=== PATIENT | male | born 1960 | race Caucasian/White ===

== ENCOUNTER 2016-12-18 08:21 | Emergency (ER) | payer OTHER ==
[2016-12-18 08:27] VITALS: BP 156/85
--- NOTE | 2016-12-18 09:02 | ED Physician Documentation ---
PD HPI Fall - Stated complaint Stated Complaint: GLF/L SIDE PX - Chief complaint Chief Complaint: General - History obtained from History obtained from: Patient - History of Present Illness Mechanism of injury: Tripped Fall distance: Standing position Where injury occurred: Home Timing - onset: Last night (fell to left side but tried to block fall with hands and hurt right wrist.) Injury(ies) location: Chest, Right Upper Extremity. No: Head, Neck, Abdomen, Back Associated symptoms: No: LOC, AMS, Paresthesias, Dyspnea, Nausea / vomiting Similar symptoms before: Has not had sx before Recently seen: Not recently seen Review of Systems Constitutional: denies: Fever, Chills Nose: denies: Rhinorrhea / runny nose, Congestion Throat: denies: Sore throat Cardiac: reports: Chest pain / pressure Respiratory: denies: Dyspnea, Cough GI: denies: Abdominal Pain, Nausea, Vomiting Neurologic: denies: Focal weakness, Numbness, Altered mental status, Headache, Head injury PD PAST MEDICAL HISTORY - Past Medical History Past Medical History: Yes Cardiovascular: Hypertension, High cholesterol Psych: Anxiety - Past Surgical History Past Surgical History: Yes General: Appendectomy - Present Medications Home Medications: Ambulatory Orders Medication Instructions Recorded Confirmed HYDROcod/ACETAM 5/325 [[place] 5/325] 1 tab PO Q6H PRN #20 tablet 12/18/16 PARoxetine [Paxil] 20 mg PO DAILY 12/18/16 12/18/16 Simvastatin 20 mg PO DAILY 12/18/16 12/18/16 raNITIdine [Zantac] 150 mg PO DAILY 12/18/16 12/18/16 - Allergies Allergies/Adverse Reactions: Allergies Allergy/AdvReac Type Severity Reaction Status Date / Time No Known Drug Allergies Allergy Verified 12/18/16 08:26 - Social History Does the pt smoke?: No Smoking Status: Never smoker Does the pt drink ETOH?: No Does the pt have substance abuse?: No PD ED PE NORMAL - Vitals Vital signs reviewed: Yes - General General: Alert and oriented X 3, Well developed/nourished - HEENT HEENT: Atraumatic - Neck Neck: Supple, no meningeal sign, No bony TTP, No adenopathy - Cardiac Cardiac: RRR, No murmur - Respiratory Respiratory: Clear bilaterally, Other (left lateral chestwall with tenderness without deformity. No bruising noted. ) - Abdomen Abdomen: Soft, Non tender - Back Back: No spinal TTP - Derm Derm: Normal color, Warm and dry - Extremities Extremities: Other (right wrist with tenderness dorsally without swelling. Some tender radial side. ROM pretty good. ) - Neuro Neuro: Alert and oriented X 3, No motor deficit, No sensory deficit, Normal speech Results - Vitals Vitals: Oxygen O2 Source Room air - Rads (name of study) chest/ribs Radiology: Prelim report reviewed (no acute process seen) right wrist Radiology: Prelim report reviewed, EMP read contemporaneously (no fractures) PD MEDICAL DECISION MAKING - ED course Complexity details: reviewed results, considered differential, d/w patient Departure - Departure Disposition: 01 Home, Self Care Clinical Impression: Fall from slip, trip, or stumble Qualifiers: Encounter type: initial encounter Qualified Code(s): W01.0XXA - Fall on same level from slipping, tripping and stumbling without subsequent striking against object, initial encounter Right wrist sprain Qualifiers: Encounter type: initial encounter Qualified Code(s): S63.501A - Unspecified sprain of right wrist, initial encounter Contusion of left chest wall Qualifiers: Encounter type: initial encounter Qualified Code(s): S20.212A - Contusion of left front wall of thorax, initial encounter Condition: Stable Record reviewed to determine appropriate education?: Yes Instructions: ED Contusion Chest Wall, ED Sprain Wrist Prescriptions: HYDROcod/ACETAM 5/325 [[place] 5/325] 1 tab PO Q6H PRN #20 tablet PRN Reason: Pain Comments: The x-rays did not show any obvious fractures. I was with the radiologist reading as well. However we do know that can be a small percentage of hairline cracks of the ribs that are missed with this. This would be symptomatic treatment would take longer to heal than just bruising of the chest. Activity as able. Use ibuprofen 3 times a day for the next 7-10 days with food. Add Tylenol or hydrocodone if needed for pain. Activity as able. The wrist and chest wall should improve over the next week or so. However might even take a full 2-3 weeks to fully heal up if there was an occult fracture of the rib. Discharge Date/Time: 12/18/16 10:15
--- NOTE | 2016-12-18 09:08 | XRAY Preliminary Report ---
Exam: XR Ribs w/PA Chest LT IMPRESSION: Normal chest and rib radiography. [facility] SITE ID: [id number]
--- NOTE | 2016-12-18 09:09 | XRAY Preliminary Report ---
Exam: XR Wrist 4 View RT IMPRESSION: Normal wrist radiography. [facility] SITE ID: [id number]
--- NOTE | 2016-12-18 09:10 | XRAY Report ---
EXAM: LEFT RIB RADIOGRAPHY AND PA CHEST EXAM DATE: 12/18/2016 09:00 AM. CLINICAL HISTORY: Fall with rib pain on lower left. COMPARISON: None. TECHNIQUE: 1 view of the chest and 2 views of the ribs. FINDINGS: Bones: Normal. No definite fracture or bone lesion. Lungs: No focal opacities. No pneumothorax. No pleural effusions. Mediastinum: Heart and mediastinal contours are unremarkable. Other: None. IMPRESSION: Normal chest and rib radiography. [facility] Referring Provider Line: [phone] SITE ID: [id number]
--- NOTE | 2016-12-18 09:11 | XRAY Report ---
EXAM: RIGHT WRIST RADIOGRAPHY EXAM DATE: 12/18/2016 08:58 AM. CLINICAL HISTORY: Fall, pain in right wrist. COMPARISON: None. TECHNIQUE: 4 views. FINDINGS: Bones: Normal. No fractures or bone lesions. Joints: Normal. No subluxations. Soft Tissues: Normal. No soft tissue swelling. IMPRESSION: Normal wrist radiography. [facility] Referring Provider Line: [phone] SITE ID: [id number]
[2016-12-18] MEDS ORDERED: IBUPROFEN 600 MG TABLET PO STA (09:52)
[2016-12-18] MEDS ORDERED: oxyCOD/ACETAMIN 5 MG/325 MG TABLET PO STA (09:52)
[2016-12-18] MEDS ORDERED: IBUPROFEN 600 MG TABLET PO ONE (10:12)
[2016-12-18] MEDS ORDERED: oxyCOD/ACETAMIN 5 MG/325 MG TABLET PO ONE (10:12)
== END 2016-12-18 10:15 | disposition home or self-care (01) ==
LOC: ED 08:21
DX: S63.501A Unspecified sprain of right wrist, initial encounter (principal); S20.212A Contusion of left front wall of thorax, initial encounter; W01.0XXA Fall on same level from slipping, tripping and stumbling without subsequent striking against object, initial encounter; Y92.009 Unspecified place in unspecified non-institutional (private) residence as the place of occurrence of the external cause; I10 Essential (primary) hypertension
CPT/HCPCS: 71101; 73110; 99283; 99284; A9270

== ENCOUNTER 2018-01-30 16:50 | Outpatient (CLI) | payer OTHER | END 2018-01-30 16:51 | disposition EMS.NT | LOC: EMS 16:50 | PROVIDERS: ATTEND Surgery | DX: M25.512 Pain in left shoulder (principal); V49.40XA Driver injured in collision with unspecified motor vehicles in traffic accident, initial encounter; Y92.414 Local residential or business street as the place of occurrence of the external cause ==

== ENCOUNTER 2018-01-30 17:43 | Emergency (ER) | payer OTHER ==
[2018-01-30 17:51] VITALS: BP 138/67
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
[2018-01-30] MEDS ORDERED: IOPAMIDOL-300 100 ML VIAL ONE (19:11)
[2018-01-30 19:25] LABS: BASOPHILS # (AUTO) 0.1 10^3/uL (0.0-0.1); BASOPHILS % (AUTO) 0.7 %; EOSINOPHILS # (AUTO) 0.1 10^3/uL (0.0-0.7); EOSINOPHILS % (AUTO) 1.2 %; HGB - HEMOGLOBIN 13.9 g/dL (14.0-18.0); LYMPHOCYTES # (AUTO) 2.2 10^3/uL (1.5-3.5); LYMPHOCYTES % (AUTO) 27.4 %; MEAN CORPUSCULAR HEMOGLOBIN 30.5 pg (27.0-31.0); MEAN CORPUSCULAR HGB CONC 34.3 g/dL (32.0-36.0); MEAN CORPUSCULAR VOLUME 88.8 fL (80.0-94.0); MEAN PLATELET VOLUME 9.4 fL (7.4-11.4); MONOCYTES # (AUTO) 0.5 10^3/uL (0.0-1.0); NEUTROPHILS # (AUTO) 5.3 10^3/uL (1.5-6.6); NEUTROPHILS % (AUTO) 64.7 %; PLT - PLATELET COUNT 157 10^3/uL (130-450); RED BLOOD COUNT 4.55 10^6/uL (4.70-6.10); RED CELL DISTRIBUTION WIDTH 13.2 % (12.0-15.0); WHITE BLOOD COUNT 8.2 x10^3/uL (4.8-10.8)
[2018-01-30 19:38] LABS: ALBUMIN 4.1 g/dL (3.2-5.5); ALBUMIN/GLOBULIN RATIO 1.4 (1.0-2.2); BILIRUBIN,TOTAL 1.6 mg/dL (0.2-1.0); CALCIUM 8.8 mg/dL (8.5-10.3); CREATININE 0.9 mg/dL (0.6-1.2); TOTAL PROTEIN 7.1 g/dL (6.7-8.2)
[2018-01-30] MEDS ORDERED: IOPAMIDOL-300 100 ML VIAL IVP ONE (19:45)
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
== END 2018-01-30 21:30 | disposition home or self-care (01) ==
LOC: ED 17:43
DX: S20.212A Contusion of left front wall of thorax, initial encounter (principal); S30.1XXA Contusion of abdominal wall, initial encounter; V53.5XXA Driver of pick-up truck or van injured in collision with car, pick-up truck or van in traffic accident, initial encounter; I10 Essential (primary) hypertension; E78.00 Pure hypercholesterolemia, unspecified; R10.12 Left upper quadrant pain; M54.2 Cervicalgia; M25.512 Pain in left shoulder; M54.9 Dorsalgia, unspecified; M12.9 Arthropathy, unspecified
CPT/HCPCS: 36415; 71260; 72125; 73030; 73564; 74177; 80053; 83690; 85025; 99283; Q9967

== ENCOUNTER 2019-02-17 17:40 | Emergency (ER) | payer OTHER ==
[2019-02-17 17:51] VITALS: BP 144/69
[2019-02-17] MEDS ORDERED: CLINDAMYCIN 150 MG CAPSULE PO STA (18:19)
[2019-02-17] MEDS ORDERED: IBUPROFEN 800 MG TABLET PO STA (18:19)
[2019-02-17] MEDS ORDERED: oxyCODONE 5 MG TABLET PO STA (18:19)
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
== END 2019-02-17 18:33 | disposition home or self-care (01) ==
LOC: ED 17:40
DX: K04.7 Periapical abscess without sinus (principal); I10 Essential (primary) hypertension
CPT/HCPCS: 99283; A9270

== ENCOUNTER 2019-06-24 10:06 | Emergency (ER) | payer OTHER ==
[2019-06-24 10:39] LABS: BASOPHILS % (AUTO) 0.6 %; EOSINOPHILS # (AUTO) 0.1 10^3/uL (0.0-0.7); EOSINOPHILS % (AUTO) 0.9 %; HGB - HEMOGLOBIN 14.1 g/dL (14.0-18.0); LYMPHOCYTES # (AUTO) 2.2 10^3/uL (1.5-3.5); LYMPHOCYTES % (AUTO) 31.2 %; MEAN CORPUSCULAR HEMOGLOBIN 31.3 pg (27.0-31.0); MEAN CORPUSCULAR HGB CONC 34.6 g/dL (32.0-36.0); MEAN CORPUSCULAR VOLUME 90.7 fL (80.0-94.0); MONOCYTES # (AUTO) 0.4 10^3/uL (0.0-1.0); MONOCYTES % (AUTO) 5.8 %; NEUTROPHILS # (AUTO) 4.2 10^3/uL (1.5-6.6); NEUTROPHILS % (AUTO) 61.2 %; PLT - PLATELET COUNT 159 10^3/uL (130-450); RED CELL DISTRIBUTION WIDTH 12.8 % (12.0-15.0); WHITE BLOOD COUNT 6.9 x10^3/uL (4.8-10.8)
[2019-06-24 10:56] LABS: ALBUMIN 4.1 g/dL (3.2-5.5); ALBUMIN/GLOBULIN RATIO 1.4 (1.0-2.2); BILIRUBIN,TOTAL 1.7 mg/dL (0.2-1.0); CREATININE 0.8 mg/dL (0.6-1.2)
[2019-06-24 12:05] VITALS: BP 133/69
--- NOTE | 2019-06-24 12:34 | ED Physician Documentation ---
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 This lasted for about 3 to 4 seconds. Did not have actual syncope. Did not fall to the ground. Did not strike his head. The symptoms quickly passed and he feels normal now. No numbness or tingling other than his bilateral fingertips for a few seconds. No chest pain. No palpitations. No headache. No trauma. He has lost about 60 pounds over the past year, has not had his blood pressure meds adjusted since this weight loss occurred. Currently feels normal. He states he ate and drink normally this morning. Review of Systems Ten Systems: 10 systems reviewed and negative Constitutional: denies: Fever, Chills Ears: denies: Ear pain Nose: denies: Rhinorrhea / runny nose, Congestion Throat: denies: Sore throat Cardiac: denies: Chest pain / pressure, Palpitations Respiratory: denies: Dyspnea, Cough GI: denies: Vomiting, Diarrhea Skin: denies: Rash Musculoskeletal: denies: Neck pain, Back pain Neurologic: denies: Headache PD PAST MEDICAL HISTORY - Past Medical History Past Medical History: Yes Cardiovascular: Hypertension, High cholesterol Psych: Anxiety - Past Surgical History Past Surgical History: Yes General: Appendectomy - Present Medications Home Medications: Ambulatory Orders Medication Instructions Recorded Confirmed PARoxetine [Paxil] 20 mg PO DAILY 12/18/16 12/18/16 Simvastatin 20 mg PO DAILY 12/18/16 12/18/16 raNITIdine [Zantac] 150 mg PO DAILY 12/18/16 12/18/16 - Allergies Allergies/Adverse Reactions: Allergies Allergy/AdvReac Type Severity Reaction Status Date / Time No Known Drug Allergies Allergy Verified 06/24/19 10:36 - Social History Does the pt smoke?: No Smoking Status: Never smoker Does the pt drink ETOH?: No Does the pt have substance abuse?: No - Immunizations Immunizations are current?: Yes PD ED PE NORMAL - Vitals Vital signs reviewed: Yes - General General: Alert and oriented X 3, No acute distress, Well developed/nourished - HEENT HEENT: PERRL, Moist mucous membranes - Neck Neck: Supple, no meningeal sign - Cardiac Cardiac: RRR, No murmur, Strong equal pulses - Respiratory Respiratory: No respiratory distress, Clear bilaterally - Abdomen Abdomen: Soft, Non tender, Non distended - Derm Derm: Warm and dry - Extremities Extremities: No edema - Neuro Neuro: Alert and oriented 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, 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50 L Hgb 14.1 Hct 40.8 L MCV 90.7 MCH 31.3 H MCHC 34.6 RDW 12.8 Plt Count 159 MPV 11.0 Neut # (Auto) 4.2 Lymph # (Auto) 2.2 Kern # (Auto) 0.4 Eos # (Auto) 0.1 Baso # (Auto) 0.0 Absolute Nucleated RBC 0.00 Nucleated RBC % 0.0 Sodium 135 Potassium 3.8 Chloride 103 Carbon Dioxide 24 Anion Gap 8.0 BUN 17 Creatinine 0.8 Estimated GFR (MDRD) 99 Glucose 89 POC Whole Bld Glucose 92 Calcium 9.0 Total Bilirubin 1.7 H AST 24 ALT 24 Alkaline Phosphatase 79 Troponin I High Sens Total Protein 7.0 Albumin 4.1 Globulin 2.9 Albumin/Globulin Ratio 1.4 Lipase 23 06/24/19 10:30 WBC RBC Hgb Hct MCV MCH MCHC RDW Plt Count MPV Neut # (Auto) Lymph # (Auto) Kern # (Auto) Eos # (Auto) Baso # (Auto) Absolute Nucleated RBC Nucleated RBC % Sodium Potassium Chloride Carbon Dioxide Anion Gap BUN Creatinine Estimated GFR (MDRD) Glucose POC Whole Bld Glucose Calcium Total Bilirubin AST ALT Alkaline Phosphatase Troponin I High Sens 7.0 Total Protein Albumin Globulin Albumin/Globulin Ratio Lipase PD MEDICAL DECISION MAKING - ED course Complexity details: reviewed results, re-evaluated patient, considered differential, d/w patient, d/w family ED course: Patient with near syncope today. No significant lab abnormalities. Occasional PVC on telemetry. No significant EKG abnormalities. Feels asymptomatic. His blood pressure is approximately 116-120 on the monitor here. Possible that he needs his blood pressure medications adjusted after his recent weight loss. Patient counseled regarding signs and symptoms for which I believe and urgent re-evaluation would be necessary. Patient with good understanding of and agreement to plan and is comfortable going home at this time This document was made in part using voice recognition software. While efforts are made to proofread this document, sound alike and grammatical errors may occur. Departure - Departure Disposition: 01 Home, Self Care Clinical Impression: Near syncope Condition: Good Instructions: ED Near Syncope Unkn Follow-Up: IMAN LINDA [Primary Care Provider] - As Needed Comments: You should keep a log of your blood pressures at home and see if your blood pressure medication needs to be adjusted now that you have lost 60 pounds. Return if you worsen.
== END 2019-06-24 12:45 | disposition home or self-care (01) ==
LOC: ED 10:06
DX: R55 Syncope and collapse (principal); I49.3 Ventricular premature depolarization; I45.10 Unspecified right bundle-branch block; I10 Essential (primary) hypertension
CPT/HCPCS: 36415; 80053; 83690; 84484; 85025; 93005; 99284

== ENCOUNTER 2019-12-20 15:01 | Outpatient (CLI) | payer OTHER ==
--- NOTE | 2019-12-20 16:11 | SLEEP CARE CONSULTATION ---
Information from patient questionnaire entered by Flash Earl. I have reviewed and concur with the information entered by Flash Earl. This document represents the service I personally performed and the decisions made by me, Kirstin Watson ARNP. History of Present Illness Service Date and Time: 12/20/2019 1501 Reason for Visit: New patient (Last seen 2009), Previously diagnosed sleep apnea, Re-establish care Chief Complaint: reports: Snoring, Other (Sleep apnea, CPAP broken) Date of Onset: 06/2006 Time it takes to fall asleep: Don't know Snores at night: Yes Observed to quit breathing while asleep: Yes Sleeps alone due to snoring: No Number of times waking at night: a couple Reasons for waking at night: reports: Snoring Toss, Turn, or Twitch while sleeping: Yes Recalls having dreams: Yes Usually gets out of bed at: 4 AM Feels refreshed in the morning: Yes Morning headache: No Sleepy or fatigued during the day: Yes Ever fallen asleep while driving: No Takes day naps: No Dreams during day naps: No Prior sleep studies: Yes Year and Where: 2009 [facility] Type of Sleep Study: Polysomnography Additional HPI information: SERGO SHINE was diagnosed to have mild, AHI 10.9, obstructive sleep apnea- hypopnea syndrome and comes in today for an appointment to re-establish care. He is on CPAP therapy. - Parasomnia Symptoms Ever been unable to move upon waking from sleep: No Walks in sleep: No Talks in sleep: No Ever acted out dreams in sleep: No Ever felt weak in the knees when startled or emotional: No Bothered by creepy, crawly, restless sensations in legs: No Problems with memory or concentration: Yes CPAP Compliance Data - Data Reviewed with Patient Average duration of nightly device use: 7 h 16 m Compliance rate %: 98 Current pressure setting (cmH2O): 5-15 Average residual AHI: 0.8 Central apnea: 0.2 Obstructive apnea: 0.3 Compliance data discussion: [employer] was last DME supplier. He has not gotten supplies for at least 2 years. He does not remember the last time he changed his cushion. He uses a nasal pillows mask. His machine is not working and hasn't for the last year. He is using his daughter in laws CPAP machine set at 5-15 cm H2O but states his pressure used to be set at 9 cm H2O. Subjective Patient concerns: reports: dry mouth, nose, throat (occasionally). denies: aerophagia, mask discomfort, air blowing in eyes, mask leak noise, condensation in mask/hose, nasal congestion, epistaxis, other Observed to snore while using device: No Current pressure setting perceived as: comfortable On therapy, patient: reports: sleeping better, awakening more refreshed, being more awake and alert during the day, more rested overall. denies: drowsiness while driving Initial [place] Sleepiness Scale score: 6 (in 2020) Past Medical History Past Medical History: reports: Anxiety, GERD, Other (High cholesterol). 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 Patient is and lives in [place]. Have you smoked in the past 12 months: No Alcohol use: No Caffeine use: Yes Caffeine amount and frequency: A lot. 5-6 20 ounce sodas daily Family History Family history of sleep disordered breathing: Yes (My mother had it) Family Hx Sleep Apnea: Mother: Snoring, Sleep apnea - Treated Allergies and Home Medications Drug allergies reviewed: Yes (NKDA) Home medication list reviewed: Yes Allergy and home medication list: paroxetine simvastatin omeprazole Review of Systems Weight loss over past 5 years: 60 Cardiovascular: reports: leg or foot swelling. denies: high blood pressure, palpitations, chest pain, irregular heart rate or pulse Respiratory: denies: shortness of breath Gastrointestinal: denies: heartburn, difficulty swallowing Urinary: denies: incontinence, impotence Neurological: denies: headaches, seizure, head trauma, speech dysfunction, gait or balance problems Psychiatric: reports: anxiety, claustrophobia. denies: Attention Deficit Hyperactivity, depression, mood disorder Ear/Nose/Throat: reports: dry mouth/throat, wisdom teeth removed. denies: nasal congestion, sinus problems, nose bleeds, hoarseness, injury to nose, tonsillectomy Endocrine: denies: thyroid disease Musculoskeletal: reports: joint pain, neck pain, back pain Immunologic: reports: itching. denies: allergies to food or environment Physical Exam Blood Pressure: 132/78 Cuff size: long Heart Rate: 64 O2 Saturation: 97 Height: 6 ft 3 in Weight: 313 lb Body Mass Index: 39.1 BMI Classification: Obese Neck circumference: 18 (inches) HEENT: No craniofacial malformation Nostrils: patent to airflow Turbinates: normal Septum: deviated left Mouth and throat: narrow oropharynx Soft palate: normal Hard palate: arched Uvula: normal Uvula visualization: 50% Mallampati Class II Tongue: normal in size Tonsils: small Chin and jaw: normal size and position Heart: regular rate and rhythm Lungs: clear bilaterally Impression and Plan 1. Obstructive Sleep Apnea-Hypopnea Syndrome, mild, with good treatment compliance and good apnea control. On CPAP therapy, the patient has better sleep quality and is more rested overall. The patients CPAP is over 5 years old and of reasonable use. In addition, it is not working at this time. Thus, the CPAP will be updated. The new CPAPs also have a better humidity system which could assist control of patients dryness symptoms. A DWO prescription will be made. Compliance guidelines for new device and follow up discussed. Patient's apnea severity and rationale for treatment to reduce apnea, improve sleep quality and reduce cardiovascular and cerebrovascular events was reviewed. I also reviewed the benefit of consistent device use of CPAP for gastric reflux and anxiety. * Continue auto CPAP pressure at 9 cmH2O * Update CPAP machine and supplies * Notify me if snoring with mask or feeling that the pressure is too much or too little * Attempt to lose weight * Call this office if any problems using CPAP * Return for follow up in 1 month , or sooner if concerns arise Visit Type: In Office Time Spent with Patient (minutes): 35 Provider Statement: I spent 100% of the Face to Face Visit with the patient with greater than 50% spent counseling the patient and coordination of care.
[2019-12-20 16:12] VITALS: BP 132/78
== END 2019-12-20 15:02 | disposition home or self-care (01) ==
LOC: SC 15:01
PROVIDERS: ATTEND Nurse Practitioner Family
DX: G47.33 Obstructive sleep apnea (adult) (pediatric) (principal); E66.9 Obesity, unspecified; Z68.39 Body mass index [BMI] 39.0-39.9, adult
CPT/HCPCS: 99204; 99212

== ENCOUNTER 2023-09-12 08:45 | Outpatient (CLI) | payer OTHER | END 2023-09-12 23:59 | disposition short-term general hospital (02) | LOC: EMS 08:45 | DX: M54.50 Low back pain, unspecified (principal) | CPT/HCPCS: A0425; A0429 ==